=== PATIENT | female | born 1945 | race Caucasian/White ===

== ENCOUNTER 2019-02-22 21:19 | Emergency (ER) | payer MEDICARE, OTHER ==
[~2019-02-22] VITALS: Ht 162.6 cm; Wt 90.7 kg
[~2019-02-22 21:19] MED LIST: ARMOUR THYROID90 MG PO
--- OUTSIDE RECORDS SUMMARY | 2019-02-22 21:21 | XMS REPORT ---
Author Author [facility] Address Unknown Phone Unavailable Care Team Providers Care Meterman Name Role Phone Unavailable Unavailable Problems This patient has no known problems. Allergies, Adverse Reactions, Alerts This patient has no known allergies or adverse reactions. Medications This patient has no known medications. Results Test Description Test Time Test Comments Text Results Atomic Results Result Comments CT C-SPINE W/O CONT 2016-10-15 12:38:[address] [id number] IMAGING REPORTPatient Name: APARNA LUEVANODate of Service: [id number]: 71 Sex: F Order #: [id number] [facility] 1945 [facility] Number: [id number] Record Number: [id number] Hospital Number: [id number] Physician: GRACE WHEELEROrdering Physician: ANKUSH LIAO CERVICAL SPINE WITHOUT CONTRAST:CLINICAL HISTORY: Pain and swelling left side of the neck; no history oftraumaTECHNIQUE: Examination is performed with 2 mm axial sections with sagittaland coronal reconstructions.This CT exam was performed using one or more of the following dosereduction techniques: Automated exposure control, adjustment of the MA andor KV according to patient size or use of iterative reconstructiontechnique.FINDINGS: There are changes of cervical spondylosis noted C5-T1.There is no evidence of central canal stenosis, however, there is neuralforamen narrowing noted on the left side at C4-C5.There are no fractures, lytic or blastic lesions.The visualized soft tissues appear unremarkable.impression:1. No acute changes are demonstrated.2. Changes of cervical spondylosis are noted E5 to T1 with neural foramennarrowing present on the left side at the C4-C5 level.Electronically Signed By: Walker Jones M.D., 10/15/2016 12:36 PMLegally authenticated by FROY Stephens 2016-10-15 12:36:13 CT HEAD W/O CONT 2016-10-15 12:34:[address] [id number] IMAGING REPORTPatient Name: Paola LUEVANO of Service: [id number]: 71 Sex: F Order #: [id number] Room: [facility]: [facility] X-Ray Number: [id number] Record Number: [id number] Hospital Number: [id number] Physician: GRACE WHEELEROrdering Physician: ANKUSH LIAO BRAIN WITHOUT CONTRAST:CLINICAL HISTORY: HeadacheTECHNIQUE: Examination is performed with 3.75 mm axial sections withcoronal and sagittal reconstructionsThis CT exam was performed using one or more of the following dosereduction techniques: Automated exposure control, adjustment of the MA andor KV according to patient size or use of iterative reconstructiontechnique.FINDINGS: The bony calvarium is intact.There is no evid ence of hemorrhage, edema or midline shift within the brainparenchyma.Mild chronic ischemic changes are noted in the periventricular deep whitematter tracts.Impression: No acute changes are demonstrated.Electronically Signed By: Walker Jones M.D., 10/15/2016 12:32 Abdiel authenticated by FROY Stephens 2016-10-15 12:32:27
[2019-02-22] MEDS ORDERED: IBUPROFEN 600 MG TAB PO STA (22:05)
--- NOTE | 2019-02-22 23:38 | Diagnostic Imaging Report ---
EXAMINATION: Head CT without contrast. HISTORY:Fall, headache. COMPARISON:None. TECHNIQUE: Multidetector axial images were obtained from the foramen magnum to the vertex without contrast. The images were reconstructed using brain and bone algorithms. Thin section brain images were reformatted into coronal and sagittal planes. Dose modulation, iterative reconstruction, and/or weight based adjustment of the mA/kV was utilized to reduce the radiation dose to as low as reasonably achievable. Intravenous contrast: None IMAGE QUALITY: Acceptable. FINDINGS: Skull/scalp: No lytic or blastic. lesions. No surgical changes. Parenchyma: No abnormal density. No acute hemorrhage, mass or acute major vascular territorial infarct. Arteries: No density suggestive of thrombosis. Dural sinuses: No abnormal density suggestive of thrombosis. Ventricles: No hydrocephalus or displacement. Extra-axial spaces: No abnormal density. Brain volume: Mild generalized cerebral volume loss. Craniocervical junction: No mass, Chiari malformation, or basilar invagination. Sella: No mass. Paranasal/mastoid sinuses: Imaged portions unremarkable. IMPRESSION: No acute intracranial abnormality. Mild generalized cerebral volume loss. Signed by: Dr. Aubrie Brady M.D. on 02/22/2019 11:35 PM
--- NOTE | 2019-02-23 00:05 | Diagnostic Imaging Report ---
Exam: Right shoulder radiographs-3 views History: Query dislocation. Comparison: None. Findings: No evidence of acute fracture or malalignment. There are moderate degenerative changes of the right glenohumeral and acromioclavicular joints. Impression: No acute radiographic abnormality. Signed by: Dr. Severo Contreras MD on 02/23/2019 12:01 AM
[2019-02-23 00:08] VITALS: BP 138/77
== END 2019-02-23 00:11 | disposition home or self-care (01) ==
LOC: ER 21:19
DX: S46.811A Strain of other muscles, fascia and tendons at shoulder and upper arm level, right arm, initial encounter (principal); W01.0XXA Fall on same level from slipping, tripping and stumbling without subsequent striking against object, initial encounter; Y92.008 Other place in unspecified non-institutional (private) residence as the place of occurrence of the external cause
CPT/HCPCS: 70450; 99282

== ENCOUNTER → 2019-03-19 | Day surgery (SDC) | payer MEDICARE, OTHER ==
[2019-03-16 13:21] LABS: BASOPHILS % 0.4 % (0.0-1.0); EOSINOPHILS # (AUTO) 0.1 (0.0-0.4); EOSINOPHILS % 0.9 % (0.0-6.0); HEMATOCRIT 40.5 % (34.2-44.1); HEMOGLOBIN 13.3 g/dL (12.0-16.0); LYMPHOCYTES # (AUTO) 2.1 (1.0-3.2); LYMPHOCYTES % 30.8 % (18.0-39.1); MEAN CORPUSCULAR HGB CONC 32.8 g/dL (31-35); MEAN CORPUSCULAR VOLUME 88.2 fL (81-99); MONOCYTES # (AUTO) 0.5 (0.2-0.8); MONOCYTES % 7.3 % (4.4-11.3); NEUTROPHILS # (AUTO) 4.1 (2.1-6.9); NEUTROPHILS % 60.5 % (38.7-80.0); PLATELET COUNT 215 x10e3/uL (140-360); RED BLOOD COUNT 4.59 x10e6/uL (3.6-5.1)
[~2019-03-19] MED LIST changes: +FENTANYL CITRATE/PF 100MCG/2 ML INJ ONE; +FISH OIL 1,2001 EAC1 PO; +IBUPROFEN400 MG PO; +LOSARTAN HCTZ PO; +MIDAZOLAM HCL 2 MG/2 ML VIAL ONE; +ONE DAILY MULT1 EAC1 PO; +PROPOFOL IV EMULSION 10 MG/ML 50 ML VIAL ONE; +SYNTHROID125 MCG PO; +TUMERIC PO; +VITAMIN COMPLEX PO; +VITAMIN D3400 UNI1 PO
[2019-03-19 07:45] VITALS: BP 130/60
== END | disposition home or self-care (01) ==
LOC: OR 05:36
PROVIDERS: ATTEND Internal Medicine Gastroenterology
DX: Z12.11 Encounter for screening for malignant neoplasm of colon (principal); K56.699 Other intestinal obstruction unspecified as to partial versus complete obstruction; K57.30 Diverticulosis of large intestine without perforation or abscess without bleeding; K64.8 Other hemorrhoids; Z71.3 Dietary counseling and surveillance; R06.09 Other forms of dyspnea; I10 Essential (primary) hypertension; E66.01 Morbid (severe) obesity due to excess calories; I25.10 Atherosclerotic heart disease of native coronary artery without angina pectoris; Z88.2 Allergy status to sulfonamides; Z88.1 Allergy status to other antibiotic agents; Z01.812 Encounter for preprocedural laboratory examination; Z68.41 Body mass index [BMI] 40.0-44.9, adult
CPT/HCPCS: 36415; 85025; 93005; G0121; J2250; J2704; J3010; 45378

== ENCOUNTER → 2019-11-10 | Outpatient (CLI) | payer MEDICARE, OTHER ==
[~2019-11-10] MED LIST changes: -FENTANYL CITRATE/PF 100MCG/2 ML INJ ONE; -MIDAZOLAM HCL 2 MG/2 ML VIAL ONE; -PROPOFOL IV EMULSION 10 MG/ML 50 ML VIAL ONE
== END ==
LOC: MAMMO 09:27
PROVIDERS: ATTEND Internal Medicine
DX: Z85.3 Personal history of malignant neoplasm of breast (principal)
CPT/HCPCS: 77066

== ENCOUNTER → 2020-02-09 | Outpatient (CLI) | payer MEDICARE, OTHER | LOC: RAD 12:34 | PROVIDERS: ATTEND Internal Medicine Pulmonary Disease | DX: R06.02 Shortness of breath (principal) | CPT/HCPCS: 71046 ==

== ENCOUNTER → 2021-05-01 | Outpatient (CLI) | payer MEDICARE, OTHER | LOC: RAD 08:36 | PROVIDERS: ATTEND Family Medicine | DX: M79.605 Pain in left leg (principal); M79.604 Pain in right leg | CPT/HCPCS: 93970 ==

== ENCOUNTER → 2023-10-29 | Outpatient (REF) | payer MEDICARE, OTHER ==
[~2023-10-29] MED LIST changes: +CIPRO250 MG PO; +METRONIDAZOLE500 MG PO
== END ==
LOC: MRI 10:13
PROVIDERS: ATTEND Family Medicine
DX: M54.50 Low back pain, unspecified (principal)
CPT/HCPCS: 72148